=== PATIENT | female | born 1985 | race Caucasian/White ===

== ENCOUNTER → 2020-07-21 09:43 | Outpatient (REF) | payer OTHER, SELFPAY | LOC: ANHLAB 09:43 | PROVIDERS: PCP Family Medicine; Visit Provider Nurse Practitioner | DX: D22.39 Melanocytic nevi of other parts of face (principal) | CPT/HCPCS: 88305 ==

== ENCOUNTER 2021-12-09 15:04 | Outpatient (CLI) | payer OTHER, SELFPAY ==
--- NOTE | 2021-12-09 15:15 | ECG_ITS ---
Measurements Intervals [place] Rate: 65 P: 31 NM: 156 QRS: 64 QRSD: 113 T: 47 QT: 396 QTc: 414 Interpretive Statements SINUS RHYTHM WITH SINUS ARRHYTHMIA INCOMPLETE RIGHT BUNDLE BRANCH BLOCK [90+ ms QRS DURATION, TERMINAL R IN V1/V2, 40+ ms S IN I/aVL/V4/V5/V6] NO PREVIOUS ECG AVAILABLE FOR COMPARISON Electronically Signed On 12-09-2021 18:59:03 CDT by Emily Toro M.D.
== END 2021-12-09 15:05 | disposition home or self-care (01) ==
LOC: ANHCARD 15:06
PROVIDERS: PCP Family Medicine; Visit Provider Physician Assistant Medical
DX: R07.89 Other chest pain (principal); I45.19 Other right bundle-branch block
CPT/HCPCS: 93005

== ENCOUNTER 2022-01-05 12:25 | Outpatient (CLI) | payer OTHER, SELFPAY ==
--- NOTE | 2022-01-05 12:58 | ECHO_ITS ---
Patient Info Name: Latasha Frederick Age: 36 years : 1985 Gender: Female Ht: 65 in Wt: 148 lbs BSA: 1.76 m2 HR: 65 bpm BP: 122 / 64 mmHg Heart Rhythm: Sinus Rhythm Technical Quality: Fair Exam Date: 01/05/2022 1:07 PM Exam Location: [facility] Patient Status: Outpatient Admit Date: 01/05/2022 Staff Ordering Physician: Yuridia Wolf PAC [employer] Supervisor: Laura Yuan RDCS Attending Provider: Yuridia Wolf PAC Referring Physician: Maryann CARLIN; Exam Type: CA echo doppler color flow Study Info Indications - chest pain Complete two-dimensional, color flow and Doppler transthoracic echocardiogram is performed. Summary 1. Complete two-dimensional, color flow and Doppler transthoracic echocardiogram is performed. 2. Left ventricular chamber dimension is normal. 3. Left ventricular systolic function is normal, estimated at 65-70%. 4. The left ventricular diastolic function is normal. 5. E/e' 7 is not elevated. 6. There is trace mitral valve regurgitation. 7. There is trace tricuspid valve regurgitation. 8. No pulmonary hypertension, estimated pulmonary arterial systolic pressure is 22 mmHg. Left Ventricle E/e' 7 is not elevated. Left ventricular chamber dimension is normal. Left ventricular systolic function is normal, estimated at 65-70%. The left ventricular diastolic function is normal. Right Ventricle Right ventricular chamber dimension is normal. Right ventricular systolic function is normal. Left Atria Left atrial chamber dimension is normal. Right Atria Right atrial chamber dimension is normal. Aortic Valve The aortic valve is trileaflet. There is no aortic valve stenosis. There is no aortic valve regurgitation. Pulmonic Valve There is no pulmonic regurgitation. Mitral Valve There is no mitral valve stenosis. There is trace mitral valve regurgitation. Tricuspid Valve There is trace tricuspid valve regurgitation. No pulmonary hypertension, estimated pulmonary arterial systolic pressure is 22 mmHg. Pericardium/Pleural There is no pericardial effusion. Inferior Vena Cava Normal inferior vena cava with >50% collapse upon inspiration consistent with normal right atrial pressure, 5 mmHg. Aorta The aortic root size at the sinus of Valsalva is normal. Left Ventricular Outflow Tract Name Value Normal LVOT 2D LVOT Diameter 2.0 cm LVOT Doppler LVOT Peak Gradient 6 mmHg LVOT Mean Gradient 2 mmHg LVOT VTI 23 cm LVOT VTI/AV VTI Ratio 0.8 LVOT Stroke Volume 72 ml LVOT CO 4.3 l/min LVOT CI 2.4 l/min/m2 Pulmonic Valve Name Value Normal RVOT Doppler RVOT Peak Gradient
== END 2022-01-05 12:26 | disposition home or self-care (01) ==
PROVIDERS: PCP Family Medicine; Visit Provider Physician Assistant Medical
DX: U07.1 COVID-19 (principal); R07.89 Other chest pain
CPT/HCPCS: 93306

== ENCOUNTER 2022-10-10 09:00 | Outpatient (NON) | payer OTHER, SELFPAY | END 2022-10-10 09:01 | disposition home or self-care (01) | LOC: ANHLAB 10-12 11:50 | PROVIDERS: PCP Family Medicine; Visit Provider Nurse Practitioner | DX: D22.5 Melanocytic nevi of trunk (principal) | CPT/HCPCS: 88305 ==

== ENCOUNTER → 2022-11-25 09:27 | Outpatient (CLI) | payer OTHER, SELFPAY ==
--- NOTE | ~2022-11-25 | XR_ITS ---
Left Hand Technique: PA, oblique, and lateral views were obtained. Clinical History: Dog bite Findings: No acute fracture or dislocation is seen. Osseous alignment is anatomic. Joint spaces are p reserved. Soft tissues are unremarkable. Impression: Unremarkable left hand. Reviewed, dictated and finalized at location M. Impression: Unremarkable left hand.
== END ==
PROVIDERS: PCP Nurse Practitioner Family; Visit Provider Nurse Practitioner Family
DX: S61.452A Open bite of left hand, initial encounter (principal); W54.0XXA Bitten by dog, initial encounter
CPT/HCPCS: 73130